=== PATIENT | female | born 1970 | race Caucasian/White ===

== ENCOUNTER 2016-10-10 10:52 | Emergency (ER) | payer MEDICAID ==
[~2016-10-10] VITALS: Ht 152.4 cm; Wt 63.5 kg
[2016-10-10 10:54] VITALS: Ht 152.4 cm; Wt 63.5 kg
[2016-10-10] MEDS ORDERED: HYDROCODONE/APAP (5/325) TAB PO ONE (13:00)
--- NOTE | 2016-10-10 13:54 | ERD ---
ER Documentation Chief Complaint Date/Time DATE: 10/10/16 TIME: 13:54 Chief Complaint RT ARM PAIN X1 WEEK, BACK PAIN, FATIGUE HPI This is a 46-year-old female who presents to the emergency department today complaining of right arm pain for the past week and some upper back pain and intermittent cough. 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 ROS All systems reviewed and are negative except as per history of present illness. Medications Home Meds Active Scripts Acetaminophen* (Tylophen*) 500 Mg Capsule, 1 CAP PO Q6H Y for PAIN AND OR ELEVATED TEMP, #30 CAP Prov:LORAINE MARTELL PA-C 10/10/16 Tramadol HCl (Tramadol HCl) 50 Mg Tablet, 50 MG PO Q4 Y for PAIN, #20 TAB Prov:LORAINE MARTELL PA-C 10/10/16 Allergies Allergies: Coded Allergies: aspirin (Verified Allergy, Intermediate, SOB, 10/10/16) PMhx/Soc History of Surgery: Yes (Kidney Stone Surgery) Anesthesia Reaction: No Hx Neurological Disorder: No Hx Respiratory Disorders: No Hx Cardiac Disorders: No Hx Psychiatric Problems: No Hx Miscellaneous Medical Probl: Yes (Kidney Stone) Hx Alcohol Use: No Hx Substance Use: No Hx Tobacco Use: No Smoking Status: Never smoker Physical Exam Vitals Vital Signs Date Time Temp Pulse Resp B/P Pulse Ox O2 Delivery O2 Flow Rate FiO2 10/10/16 14:48 72 16 168/87 100 Room Air 10/10/16 10:54 98.3 80 16 138/73 99 Physical Exam Const: No acute distress Head: Atraumatic Eyes: Normal Conjunctiva ENT: Normal External Ears, Nose and Mouth. Neck: Full range of motion..~ No meningismus. Resp: Clear to auscultation bilaterally Cardio: Regular rate and rhythm, no murmurs Abd: Soft, non tender, non distended. Normal bowel sounds Skin: No petechiae or rashes Back: No midline tenderness. No CVA tenderness. Full active range of motion. Ext: Right arm with no obvious deformity. No effusion. No ecchymosis. Full active range of motion at shoulder and elbow. Pain with wrist flexion extension pronation supination and diffusely tender to palpation pain over ulnar aspect of wrist. Pulses 2+. Distal neurovascularly intact Neur: Awake and alert Psych: Normal Mood and Affect Results 24 hrs Current Medications Medications (Trade) Dose Ordered Sig/Natividad Route PRN Reason Start Time Stop Time Status Last Admin Dose Admin Acetaminophen/ Hydrocodone Bitart (Royal (5/325)) 1 tab ONCE ONCE PO 10/10/16 13:00 10/10/16 13:01 DC 10/10/16 13:40 DIAGNOSTIC IMAGING REPORT Patient: CONCEPCION SUNSHINE : 1970 Age: 46 Sex: F MR #: [id number] DOS: 10/10/16 0000 Ordering MD: LORAINE MARTELL PA-C Location: [facility] Room/Bed: PROCEDURE: Chest Radiograph. CLINICAL INDICATION: Cough TECHNIQUE: Single frontal chest radiograph. COMPARISON: None available FINDINGS: The cardiomediastinal silhouette is within normal limits. No infiltrate or effusion is seen. The bones are intact. IMPRESSION: 1. Unremarkable chest radiograph. RPTAT: KK .Carl Cox MD, MD Date Time Electronically viewed and signed by .Carl Cox MD, MD on 2016 13:55 .B/ CC: LORAINE MARTELL PA-C DIAGNOSTIC IMAGING REPORT Patient: CONCEPCION SUNSHINE : 1970 Age: 46 Sex: F MR #: [id number] DOS: 10/10/16 0000 Ordering MD: LORAINE MARTELL PA-C Location: [facility] Room/Bed: PROCEDURE: XR Wrist. CLINICAL INDICATION: Right wrist pain TECHNIQUE: 4 views of the right wrist were performed. COMPARISON: No prior studies are available for comparison. FINDINGS: There is normal mineralization and alignment of the bones of the right wrist . There is no evidence of acute fracture or dislocation. Joint spaces are well maintained. No erosions or osteophytes are seen. The soft tissues are within normal limits. IMPRESSION: 1. Unremarkable right wrist x-ray series. RPTAT: KK .Carl Cox MD, MD Date Time Electronically viewed and signed by .Carl Cox MD, MD on 2016 13:57 .B/ CC: LORAINE MARTELL PA-C Procedures/MDM This 46-year-old female who presents to the emergency department today with multiple complaints. She is here in the same exam room with her daughter who also has multiple complaints. Patient had been complaining of intermittent cough and upper back pain and therefore did obtain a chest x-ray. Chest x-ray is negative. There is no infiltrate or effusion. Vision is afebrile and otherwise well-appearing. She is not tachycardic and her oxygen saturation is 99%. This is been ongoing for quite some time and have low suspicion for acute PE, abscess, pleural effusion, pneumothorax. She did do admit to standing for long periods of time at work. Patient was concerned complaining of considerable pain in her right wrist has been doing a new job on the assembly line. Patient was requesting an x-ray. Right wrist x-ray is unremarkable. There is no evidence of acute fracture dislocation. Joint spaces are well-maintained. There are no erosions or osteophytes seen. Soft tissues are within normal limits. Patient symptoms at this time is consistent with wrist strain versus sprain versus overuse injury. Patient was placed in a Velcro wrist splint. She was instructed to wear for comfort and may wear it for her job. Patient was given Royal here in the emergency department. She will be given a short course of Royal and Naprosyn for home. At this time the patient is stable for discharge and outpatient management. Patient should follow up with their PCP in the next 1-2 days. They may return to the emergency department sooner for any persistent or worsening of symptoms. Patient understood and agreed with the plan. Departure Diagnosis: Primary Impression: Multiple complaints Condition: Fair PROUSE,LORAINE M. PA-C Oct 10, 2016 13:54
--- NOTE | 2016-10-10 13:56 | RADRPT ---
PROCEDURE: Chest Radiograph. CLINICAL INDICATION: Cough TECHNIQUE: Single frontal chest radiograph. COMPARISON: None available FINDINGS: The cardiomediastinal silhouette is within normal limits. No infiltrate or effusion is seen. Th e bones are intact. IMPRESSION: 1. Unremarkable chest radiograph. RPTAT: KK .Carl Cox MD, MD Date Time Electronically viewed and signed by .Carl Cox MD, on 10/10/2016 13:55 .B/
--- NOTE | 2016-10-10 13:57 | RADRPT ---
PROCEDURE: XR Wrist. CLINICAL INDICATION: Right wrist pain TECHNIQUE: 4 views of the right wrist were performed. COMPARISON: No prior studies are available for comparison. FINDINGS: There is normal mineralization and alignment of the bones of the right wrist . There is no evidence of acute fracture or dislocation. Joint spaces are well maintained. No erosions or osteophytes are seen. The soft tissues are within normal limits. IMPRESSION: 1. Unremarkable right wrist x-ray series. RPTAT: KK .Carl Cox MD, MD Date Time Electronically viewed and signed by .Carl Cox MD, on 10/10/2016 13:57 .B/
[2016-10-10] MEDS ORDERED: TRAM50TA2 PO (14:32)
[2016-10-10] MEDS ORDERED: ACET500C5 PO (14:35)
[2016-10-10 14:48] VITALS: BP 168/87; PULSE 72; RESP 16
== END 2016-10-10 14:49 | disposition home or self-care (01) ==
LOC: FTE 10:52
DX: M79.601 Pain in right arm (principal); M54.6 Pain in thoracic spine; R05 Cough; R53.83 Other fatigue
CPT/HCPCS: 29125; 71010; 73110; Z7610

== ENCOUNTER 2017-06-01 18:22 | Emergency (ER) | END 2017-06-01 22:45 | disposition home or self-care (01) ==